=== PATIENT | female | born 1980 | race Caucasian/White ===

== ENCOUNTER 2017-10-27 13:14 | Emergency (ER) | payer OTHER ==
[~2017-10-27] VITALS: Ht 165.1 cm; Wt 66.2 kg
[2017-10-27 16:01] VITALS: BP 103/81
== END 2017-10-27 16:02 | disposition home or self-care (01) ==
LOC: EME 13:14
DX: M25.561 Pain in right knee (principal)
CPT/HCPCS: 73564; 99281; 99283